=== PATIENT | male | born 1985 | race Caucasian/White ===

== ENCOUNTER 2018-08-27 14:35 | Emergency (ER) | payer MEDICAID ==
[2018-08-27] MEDS ORDERED: NS 1,000 ML IV ONE (14:56)
--- NOTE | 2018-08-27 15:00 | EDPHY ---
HPI/HX/ROS/PE/MDM Narrative: CHIEF COMPLAINT:Syncope, diarrhea HPI: The patient is a 32-year-old male with a history of psychiatric disease. He complains of approximately 2-3 days of non-bloody, non-melenic diarrhea. No vomiting or abdominal pain. No measured fever or chills. No antibiotics, recent travel or unusual foods. Earlier today he was helping his father with a task when he had a syncopal episode. He was able to bend down on one knee before briefly passing out. Later in the day he had another near syncopal episode. He denies chest pain or shortness of breath. He is currently asymptomatic. REVIEW OF SYSTEMS: Aside from elements discussed in the HPI, a comprehensive 10-point review of systems was reviewed and is negative. PMH: No history of GI or cardiac disease. SOCIAL HISTORY: Denies alcohol or drug abuse. PHYSICAL EXAM: General:Patient is alert, in no acute distress. He is well-appearing. ENT:Eyes are normal to inspection. ENT inspection normal. Neck: Normal inspection. Full range of motion. Respiratory:No respiratory distress. Breath sounds normal bilaterally. Cardiovascular: Regular rate and rhythm. Strong peripheral pulses. Normal cap refill. Abdomen:The abdomen is nontender to palpation. There are no peritoneal signs. There are normal bowel sounds. Back: Normal to inspection. No tenderness to palpation. Skin: Normal color. No rash. Warm and dry. Extremities: Normal appearance. Full range of motion. Neuro: Oriented x3. Normal motor function. Normal sensory function. ED Course: 32-year-old male presents following a syncopal episode today after having diarrhea the past 2-3 days. Abdomen is benign on exam. IV established. Plan for EKG, labs including CBC, chemistries. Plan to administer 1L IV NS for rehydration. EKG was ordered and interpreted by myself. Please see [employer] system for official reading. Sinus rhythm. Reviewed laboratory studies. These are unremarkable. Reassessed patient. He is feeling better following fluid administration. EKG and laboratory studies are normal here today. Plan for road test, PO challenge. 16:15 Patient has passed road test and PO challenge. He continues to feel well. Plan to discharge home in good condition. Follow up and return precautions discussed. He is advised to stay well-hydrated. He is comfortable with this plan. MDM: This patient presents with syncope in the setting of recent diarrheal illness. His labs, vitals and ECG are all normal. As such, I think he is safe for outaptient discharge. He has no complaint of abdominal pain nor does he have abdominal tenderness. He feels asymptomatic after 1L IVNS and I suspect his symptoms are likely due to dehydration secondary to diarrhea. There are no signs of GI bleed, acute abdomen or ACS. - Data Points Laboratory Results: Laboratory Results 08/27/18 14:50 08/27/18 14:50 08/27/18 08/27/18 14:50 14:50 WBC 5.78 10^3/uL 10^3/uL (3.80-9.50) RBC 4.46 10^6/uL 10^6/uL (4.40-6.38) Hgb 14.4 g/dL g/dL (13.7-17.5) Hct 43.5 % % (40.0-51.0) MCV 97.5 fL fL (81.5-99.8) MCH 32.3 pg pg (27.9-34.1) MCHC 33.1 g/dL g/dL (32.4-36.7) RDW 13.0 % % (11.5-15.2) Plt Count 220 10^3/uL 10^3/uL (150-400) MPV 9.3 fL fL (8.7-11.7) Neut % (Auto) 58.7 % % (39.3-74.2) Lymph % (Auto) 23.2 % % (15.0-45.0) [place] % (Auto) 13.3 % H % (4.5-13.0) Eos % (Auto) 3.8 % % (0.6-7.6) Baso % (Auto) 0.5 % % (0.3-1.7) Nucleat RBC Rel Count 0.0 % % (0.0-0.2) Absolute Neuts (auto) 3.39 10^3/uL 10^3/uL (1.70-6.50) Absolute Lymphs (auto) 1.34 10^3/uL 10^3/uL (1.00-3.00) Absolute Monos (auto) 0.77 10^3/uL 10^3/uL (0.30-0.80) Absolute Eos (auto) 0.22 10^3/uL 10^3/uL (0.03-0.40) Absolute Basos (auto) 0.03 10^3/uL 10^3/uL (0.02-0.10) Absolute Nucleated RBC 0.00 10^3/uL 10^3/uL (0-0.01) Immature Gran % 0.5 % % (0.0-1.1) Immature Gran # 0.03 10^3/uL 10^3/uL (0.00-0.10) Sodium 139 mEq/L mEq/L (135-145) Potassium 4.6 mEq/L mEq/L (3.5-5.2) Chloride 105 mEq/L mEq/L (97-110) Carbon Dioxide 23 mEq/l mEq/l (22-31) Anion Gap 11 mEq/L mEq/L (6-14) BUN 19 mg/dL mg/dL (7-23) Creatinine 1.1 mg/dL mg/dL (0.7-1.3) Estimated GFR > 60 Glucose 91 mg/dL mg/dL (70-100) Calcium 9.0 mg/dL mg/dL (8.5-10.4) Medications Given: Discontinued Medications Sodium Chloride (Ns) 1,000 mls @ 0 mls/hr IV EDNOW ONE; Wide Open PRN Reason: Protocol Stop: 08/27/18 14:57 Last Admin: 08/27/18 15:14 Dose: 1,000 mls General Time Seen by Provider: 08/27/18 14:48 Initial Vital Signs: Initial Vital Signs Temperature (C) 36.8 C 08/27/18 14:42 Heart Rate 93 08/27/18 14:42 Respiratory Rate 16 08/27/18 14:42 Blood Pressure 128/100 H 08/27/18 14:42 O2 Sat (%) 96 08/27/18 14:42 O2 Delivery Mode Room Air Allergies/Adverse Reactions: Penicillins Allergy (Verified 08/27/18 14:41) Home Medications: Medication Instructions Recorded Depakote 08/27/18 Klonopin 08/27/18 Seroquel 08/27/18 Wellbutrin 75mg (*) 08/27/18 hydrOXYzine HCL 08/27/18 traZODone 08/27/18 Departure - Departure Disposition: Home, Routine, Self-Care Clinical Impression: Diarrhea Qualifiers: Diarrhea type: unspecified type Qualified Code(s): R19.7 - Diarrhea, unspecified Syncope Qualifiers: Syncope type: unspecified Qualified Code(s): R55 - Syncope and collapse Condition: Good Instructions: Syncope (ED), Acute Diarrhea (ED) Additional Instructions: Follow up with your primary care provider in 2-3 days. Stay well hydrated, drinking plenty of fluids. Return to the emergency department for fever, uncontrollable vomiting or diarrhea, inability to tolerate fluids by mouth, or if you develop chest pain, shortness of breath, or other worsening of condition. Referrals: Deborah Croft MD [Medical Doctor] - As per Instructions Report Scribed for: Gigi Dunbar Report Scribed by: Flavia Bhardwaj Date of Report: 08/27/18 Time of Report: 15:09 Physician Review and Approval Statement: Portions of this note were transcribed by an ED scribe. I personally performed the history, physical exam, and medical decision making; and confirm the accuracy of the information in the transcribed note.
[2018-08-27 15:09] LABS: PLATELET COUNT 220 10^3/uL (150-400)
[2018-08-27 17:00] VITALS: BP 128/86
--- NOTE | 2018-08-27 21:09 | CPEKG ---
Test Reason : OPEN Blood Pressure : / mmHG Vent. Rate : 081 BPM Atrial Rate : 081 BPM P-R Int : 147 ms QRS Dur : 102 ms QT Int : 360 ms P-R-T Axes : 068 089 048 degrees QTc Int : 418 ms Sinus rhythm Confirmed by Gigi Dunbar ([id number]) on 08/27/2018 9:09:25 PM Referred By: Gigi Dunbar Confirmed By:Gigi Dunbar
== END 2018-08-27 17:01 | disposition home or self-care (01) ==
DX: R55 Syncope and collapse (principal); R19.7 Diarrhea, unspecified; E86.9 Volume depletion, unspecified